=== PATIENT | female | born 1985 | race Caucasian/White ===

== ENCOUNTER 2020-01-02 15:54 | Emergency (ER) | payer OTHER ==
[~2020-01-02] VITALS: Ht 157.5 cm; Wt 59.0 kg
[2020-01-02] MEDS ORDERED: DEXAMETHASONE2 MG (16:13)
[2020-01-02] MEDS ORDERED: AUGMENTIN 875-125 (16:14)
== END 2020-01-02 18:48 | disposition home or self-care (01) ==
LOC: ER 15:54
DX: J01.00 Acute maxillary sinusitis, unspecified (principal)

== ENCOUNTER 2022-01-07 20:24 | Inpatient (IN) | payer OTHER ==
[~2022-01-07] VITALS: Ht 157.5 cm; Wt 55.3 kg
[~2022-01-07 20:24] MED LIST: AUGMENTIN 875-125; DEXAMETHASONE2 MG
[2022-01-07] MEDS ORDERED: TAPAZOLE5 MG PO (20:54)
== END 2022-01-10 17:30 | disposition left against medical advice (07) | DRG 690 ==
LOC: ER 20:24 → SEC-K 23:59 → MEDJ 01-08 17:17
PROVIDERS: ADMIT Internal Medicine; ATTEND Internal Medicine
PROC: BW21ZZZ Computerized Tomography (CT Scan) of Abdomen and Pelvis (ICD-10-PCS; principal; 2022-01-07)
DX: N39.0 Urinary tract infection, site not specified (principal); R31.9 Hematuria, unspecified; R10.2 Pelvic and perineal pain; D72.828 Other elevated white blood cell count; Z20.822 Contact with and (suspected) exposure to COVID-19; D72.0 Genetic anomalies of leukocytes; Z53.29 Procedure and treatment not carried out because of patient's decision for other reasons